=== PATIENT | female | born 1980 | race Caucasian/White ===

== ENCOUNTER 2020-01-08 09:57 | Emergency (ER) | payer BC ==
[~2020-01-08] VITALS: Ht 167.6 cm; Wt 113.6 kg
[2020-01-08 09:58] VITALS: Ht 167.6 cm; Wt 113.6 kg
[2020-01-08] MEDS ORDERED: OMEPRAZOLE40 MG PO (09:59)
[2020-01-08] MEDS ORDERED: COZAAR50 MG PO (09:59)
[2020-01-08] MEDS ORDERED: LEXAPRO20 MG PO (09:59)
[2020-01-08 10:22] LABS: BASOPHILS 0.4 % (0-2); EOSINOPHILS 1.6 % (0-7); HEMATOCRIT 41.7 % (36.0-48.0); HEMOGLOBIN 14.1 g/dL (12-16); IMMATURE GRANULOCYTES 0.2 % (0-5); LYMPHOCYTES 35.1 % (15-50); MCH 30.7 pg (26.0-34.0); MCHC 33.8 g/dL (31.0-37.0); MCV 90.7 fL (80.0-100.0); MEAN PLATELET VOLUME 10.3 fL (7.4-10.4); MONOCYTES 6.1 % (2-11); NEUTROPHILS 56.6 % (40-80); PLATELET COUNT 156 10x3/uL (130-400); WBC 5.7 10x3/uL (4.8-10.8)
[2020-01-08 10:28] LABS: APTT 26.1 SECONDS (22.8-39.4); PROTIME 13.1 SECONDS (11.6-15.0)
[2020-01-08 10:30] LABS: CALC OSMOLALITY 274 mosm/kg (275-300); CALCIUM 10.2 mg/dL (8.5-10.1); CARBON DIOXIDE 24.7 mmol/L (21.0-32.0); CHLORIDE - SERUM 103 mmol/L (98-107); CREATININE - SERUM 0.7 mg/dL (0.6-1.3); GLUCOSE 168 mg/dL (74-106); POTASSIUM - SERUM 4.2 mmol/L (3.5-5.1); SODIUM 136 mmol/L (136-145); UREA NITROGEN 11 mg/dL (7-18); eGFR NON AFRICAN AMERICAN > 90 mL/min (90-120)
[2020-01-08 10:44] LABS: ALBUMIN 3.7 g/dL (3.4-5.0); ALKALINE PHOSPHATASE 86 U/L (30-120); ALT (SGPT) 112 U/L (10-68); BILIRUBIN - TOTAL 0.51 mg/dL (0.2-1.3); CKMB 0.4 U/L (0.0-3.6); CREATINE KINASE 48 UL (21-215); MAGNESIUM - SERUM 1.9 mg/dL (1.8-2.4); PROTEIN - SERUM 7.3 g/dL (6.4-8.2); TROPONIN-I < 0.017 ng/mL (0.000-0.060)
[2020-01-08 14:01] VITALS: BP 140/84
== END 2020-01-08 14:02 | disposition home or self-care (01) ==
LOC: EDBD 09:57 → D.ER 09:57
PROVIDERS: Family Medicine
DX: M25.511 Pain in right shoulder (principal); R06.02 Shortness of breath; I10 Essential (primary) hypertension; K21.9 Gastro-esophageal reflux disease without esophagitis